=== PATIENT | male | born 1995 | race African-American/Black ===

== ENCOUNTER 2023-11-24 11:53 | Emergency (ER) | payer SELFPAY ==
[2023-11-24 11:54] VITALS: BP 124/84
--- NOTE | 2023-11-24 12:30 | ED.GENMED ---
History of Present Illness
General
Chief Complaint: Headache
Source: patient
Time Seen by Provider: 11/24/23 12:07
History of Present Illness
History of Present Illness:
28yoM with a history of tachycardia and asthma presenting for evaluation of flu-like symptoms x 4-5 days. Symptoms include a headache, body aches, congestion, and cough. Headache is currently mild and feels like a sinus headache. He has not been
taking anything OTC for his symptoms. His nephew vomited in his face before his symptoms started and he believes this may have been what got him sick. He is also having intermittent chest pain for quite some time. He was previously diagnosed with
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
Phy Exam
General Physical Exam
General Presentation: well appearing and no apparent distress
General age: appears stated age
General Skin: warm and dry
General Habitus: normal
General Mental: alert
General Hydration: appears well hydrated
ENT Exam
ENT Exam: TM's normal, pharynx normal and neck supple
Additional ENT: Full ROM of cervical spine without nuchal rigidity
Cardiovascular Exam
Cardiovascular Exam: regular rate/rhythm and no murmur
Pulmonary Exam
Pulmonary Exam: lungs clear, no respiratory distress, no crackles and no wheezing
Tracy Coma Scale
Eye Opening: Spontaneous
Verbal Response: Oriented
Motor Response: Obeys Commands
GCS Total Score: 15
Skin Exam
Skin Exam: normal color and warm/dry
Psychiatric Exam
Psychiatric Exam: normal mood/affect
Course
Orders/Labs/Results
Orders:
Orders
11/24/23 12:29
Electrocardiogram (*1) Urgent
Reason for Study: Chest Pain
Cardiac Monitoring- Treatment ONCE
EKG- Treatment ONCE
0.9% Sodium Chloride 1000 ml [Nss] 1,000 ml IV BOLUS
CR Chest - 2 Views Urgent
Comment:
Reason For Exam: Cough
11/24/23 12:42
COVID-19 Antigen Urgent
Source: Nasal Swab
Complete Blood Count/With Diff Urgent
Comprehensive Metabolic Panel Urgent
Troponin I Urgent
Influenza A+B Rapid Molecular Urgent
HEIDY Source: Nasal Swab
Specimen Description:
Abnormal Lab Results
11/24/23
12:42
RBC 4.49 L 10^6/uL
(4.70-6.10)
MCH 32.3 H pg
(27.0-31.0)
Absolute Monos (auto) 0.7 H 10^3/uL
(0.1-0.6)
Immature Gran % 0.7 H %
(0-0.5)
Monocytes % 11.6 H %
(1.7-9.3)
BUN 23 H mg/dl
(9-20)
Glucose 118 H mg/dl
(70-99)
AST 78 H U/L
(17-59)
ALT 81 H U/L
(0-50)
11/24/23 12:42
11/24/23 12:42
Vital Signs
Initial and Last Documented VS:
Initial Vital Signs
Temp Pulse Resp BP Pulse Ox
98.6 F 100 20 124/84 94
11/24/23 11:54 11/24/23 11:54 11/24/23 11:54 11/24/23 11:54 11/24/23 11:54
Last Documented Vital Signs
Temp Pulse Resp BP Pulse Ox
98.6 F 80 17 124/62 97
11/24/23 11:54 11/24/23 13:45 11/24/23 13:45 11/24/23 13:00 11/24/23 13:45
MDM/Problems Addressed
Differential Diagnosis Includes:
28yoM here with URI symptoms x several days. C/o body aches, headaches, congestion, cough. Also having intermittent chest pain for 'a while.' He is afebrile and hemodynamically stable. He is well appearing in no distress. Exam is reassuring. No
nuchal rigidity noted. Differential diagnosis includes but is not limited to: URI, COVID, influenza, pneumonia, arrhythmia
Initial ED plan: Check cardiac labs, COVID/flu swab, EKG, and CXR. IV fluid bolus. Patient declines analgesics.
*EKG
Interpreted by ED Provider?: Yes
EKG Intrepretation Date: 11/24/23
Heart Rate: 80
Rate: normal
Rhythm: sinus
[place]: normal axis
Interval: normal interval
QRS Pattern: normal QRS
Ischemia: other (Nonspecific T wave changes)
*Critical Care Note
Total Time (30-74mins, 75-104mins- exclusive of procedures): Not Applicable
Update Note
Update Note:
COVID/flu swab negative. Mild transaminitis noted on labs which is nonspecific and may be 2/2 viral illness. He has no abdominal symptoms. Remainder of labs unremarkable. EKG shows NSR without ischemic changes and troponin WNL. CXR is clear. No
indication for hospitalization. Suspect viral URI. Supportive care discussed. Advised f/u with PCP and ED return precautions discussed. He was discharged in stable condition.
ED Attending Note
-
Portions of this chart may have been created with voice recognition software.� Occasional wrong word or��sound alike� substitutions may have occurred due to the inherent limitations of voice recognition software.
Discharge Plan
Departure
Patient Disposition: Home (Routine Discharge)
Date of Disposition: 11/24/23
Time of Disposition: 14:28
Patient with high blood pressure during this ER visit?: No
Discharge Problem:
Viral illness, Transaminitis
Instructions: Upper Respiratory Infection ED
Referrals:
NONE,* [Family Provider] -
Stand Alone Forms: Return to Work
Activity Restrictions/Additional Instructions:
Drink plenty of fluids and rest. Take Tylenol and ibuprofen as needed for body aches/headaches.
Please follow-up with your family doctor. Return to the ER with any new or worsening symptoms.
Interventions
Interventions:
*Risk Screen - Suicide Last Done: 11/24/23 12:46
*General Assessment Last Done: 11/24/23 12:46
*Neglect/Abuse Screening Last Done: 11/24/23 12:46
ED- Fall Risk Assessment Last Done: 11/24/23 15:17
*Nursing Disposition Last Done: 11/24/23 15:17
ED- Neurological Assessment Last Done: 11/24/23 12:46
Discharge Date and Time
Discharge Date/Time: 11/24/23 15:28
Print Language: MAORI
[2023-11-24 12:38] VITALS: BP 134/80
[2023-11-24] MEDS: NSS 1000 IV (12:52)
[2023-11-24 13:00] VITALS: BP 124/62
[2023-11-24 13:04] LABS: % Basophils 0.8 % (0-2); % Eosinophils 2.6 % (0-6); % Immature Granulocytes 0.7 % (0-0.5); % Lymphocytes 28.7 % (20.5-51.1); % Monocytes 11.6 % (1.7-9.3); % Neutrophils 55.6 % (42.2-75.2); Absolute Basophils 0.1 10^3/uL (0-0.2); Absolute Eosinophils 0.2 10^3/uL (0-0.7); Absolute Lymphocytes 1.8 10^3/uL (1.2-3.4); Absolute Monocytes 0.7 10^3/uL (0.1-0.6); Absolute Neutrophils 3.4 10^3/uL (1.4-6.5); Hematocrit 41.5 % (39.0-52.0); Hemoglobin 14.5 g/dL (13.0-18.0); Mean Corp Hgb Conc. 34.9 g/dL (33.0-37.0); Mean Corpuscular Hgb 32.3 pg (27.0-31.0); Mean Corpuscular Volume 92.4 fL (80.0-94.0); Mean Platelet Volume 9.8 fL (7.4-10.4); Nucleated Red Blood Cells % 0 % (-); Platelet Count 264 10^3/uL (130-400); Red Blood Cell Count 4.49 10^6/uL (4.70-6.10); Red Cell Dist. Width 13.9 % (11.5-14.5); White Blood Cell Count 6.1 10^3/uL (4.8-10.8)
[2023-11-24 13:17] LABS: ALT (SGPT) 81 U/L (0-50); AST (SGOT) 78 U/L (17-59); Albumin 4.1 g/dl (3.5-5.0); Alkaline Phosphatase 68 U/L (38-126); Blood Urea Nitrogen 23 mg/dl (9-20); Calcium 9.6 mg/dl (8.4-10.2); Carbon Dioxide 27 mmol/L (22-30); Chloride 102 mmol/L (98-107); Glucose 118 mg/dl (70-99); Potassium 4.5 mmol/L (3.5-5.1); Sodium 139 mmol/L (135-145); Total Bilirubin 0.5 mg/dl (0.2-1.3); Total Protein 6.6 g/dl (6.3-8.2); eGFR > 60.00
[2023-11-24 13:26] LABS: Troponin I < 0.012 ng/ml
[2023-11-24 13:30] LABS: COVID-19 Antigen Negative (Negative)
== END 2023-11-24 15:28 | disposition home or self-care (01) ==
LOC: EMR 11:53
PROVIDERS: Physician Assistant; EMERGENCY PHYSICIAN Emergency Medicine
DX: B34.9 Viral infection, unspecified (principal); R74.01 Elevation of levels of liver transaminase levels
CPT/HCPCS: 99285; 96360; 71046; 80053; 84484; 85025; 87502; 87811; 93005

== ENCOUNTER 2024-04-16 08:28 | Emergency (ER) | payer OTHER, SELFPAY ==
[2024-04-16 08:38] VITALS: BP 126/86
[2024-04-16 08:46] LABS: Glucose - Point of Care 87 mg/dl (70-99)
--- NOTE | 2024-04-16 09:50 | ED.GENMED ---
History of Present Illness
General
Chief Complaint: Weight Changes
Source: patient
Exam Limitations: none
Time Seen by Provider: 04/16/24 09:31
Nursing documentation reviewed up to this point in time: agreed with
History of Present Illness
History of Present Illness:
29-year-old male with history of asthma presents stating for the past 3 to 4 months he has had gradually worsening fatigue, heartburn which is worse at night, intermittent sweating, states he lost 10 pounds in the past 5 days, frequent urination,
thirstiness, poor appetite, left-sided abdominal pain, but has been forcing himself to eat, recently went to urgent care and was told he had reflux with esophagitis and prescribed Protonix which he has not picked up from the pharmacy yet.
Past History
Past History
ED Past Medical History: Asthma and GERD
Social History
Tobacco: Non-smoker
Alcohol: None
Personal: Single
Living: other (With girlfriend)
Employment: Employed
Review of Systems
Review of Systems
Allergies reviewed?: Yes
All Other Systems: ROS reviewed and negative except as documented in HPI and ROS
Constitutional: Reports weight loss and fatigue; Denies fever
Respiratory: Denies trouble breathing
Cardiac: Reports palpitations; Denies chest pain, diaphoresis or syncope
ABD/GI: Denies abdominal pain, nausea, vomiting, diarrhea or anorexia
: Denies dysuria, frequency or difficulty voiding
Musculoskeletal: Reports no symptoms
Skin: Reports no symptoms
Neurological: Reports no symptoms
Phy Exam
Physical Exam
Physical Exam:
GENERAL: No acute distress. A&Ox3.
CONSTITUTIONAL: Afebrile.
EYES: clear, conjunctivae normal
ENMT: moist mucus membranes, Pharynx nl
RESPIRATORY: Regular respirations, nonlabored, lungs clear.
CARDIOVASCULAR: Regular rate and rhythm, no murmurs, no rubs.
GI: Soft, nontender, normal BS
MUSCULOSKELETAL: Moves with ease. Well perfused.
SKIN: Warm, dry, normal
PSYCH: Normal mood and affect. Well kept, interactive and appropriate
NEUROLOGIC: Awake, alert and oriented. No focal neurological deficits
Course
Orders/Labs/Results
Orders:
Orders
04/16/24 10:06
Iohexol [Omnipaque] See Protocol PO NOW STA
04/16/24 10:07
CT Abd/pel W Iv And Oral Contr Urgent
Comment:
Reason For Exam: left side abd pain
0.9% Sodium Chloride 1000 ml [Nss] 1,000 ml IV BOLUS
04/16/24 10:26
Pantoprazole [Protonix IV] 80 mg IV NOW STA
04/16/24 10:37
Complete Blood Count/With Diff Urgent
Comprehensive Metabolic Panel Urgent
Free T4 Urgent
Comment: ADD ON
Lipase Urgent
TSH Urgent
Comment: ADD ON
Total Thyroxine Urgent
Comment: ADD ON
04/16/24 14:42
Add On- LAB Urgent
Tests Added?: T4
04/16/24 14:45
Add On- LAB Urgent
Tests Added?: free T4
Abnormal Lab Results
04/16/24
10:37
RDW 14.7 H %
(11.5-14.5)
Monocytes % 10.0 H %
(1.7-9.3)
Potassium 5.3 H mmol/L
(3.5-5.1)
BUN 28 H mg/dl
(9-20)
AST 166 H U/L
(17-59)
ALT 118 H U/L
(0-50)
Albumin 5.1 H g/dl
(3.5-5.0)
TSH 0.38 L uIU/ml
(0.47-4.68)
01/27/25 10:37
04/16/24 10:37
Vital Signs
Initial and Last Documented VS:
Initial Vital Signs
Temp Pulse Resp BP Pulse Ox
98.3 F 83 16 126/86 98
04/16/24 08:38 04/16/24 08:38 04/16/24 08:38 04/16/24 08:38 04/16/24 08:38
Last Documented Vital Signs
Temp Pulse Resp BP Pulse Ox
98.3 F 53 20 131/83 100
04/16/24 08:38 04/16/24 10:54 04/16/24 10:54 04/16/24 13:00 04/16/24 13:15
MDM/Problems Addressed
Differential Diagnosis Includes:
GERD, esophagitis, hyperglycemia, hyperthyroid
MDM/Problems Addressed:
29-year-old male with history of asthma presents stating for the past 3 to 4 months he has had gradually worsening fatigue, heartburn which is worse at night, intermittent sweating, states he lost 10 pounds in the past 5 days, frequent urination,
thirstiness, poor appetite, left-sided abdominal pain, but has been forcing himself to eat, recently went to urgent care and was told he had reflux with esophagitis and prescribed Protonix which he has not picked up from the pharmacy yet.
Patient totally nontoxic-appearing, afebrile, VSS
Bedside glucose on arrival 87 mg/dL
He does not have a primary doctor at this time
He states he had an upper endoscopy
CBC normal
CMP with no clinically significant abnormality, mild elevation of AST, ALT and BUN otherwise normal may be from dehydration, viral illness
Lipase normal
2:30 PM: CT abdomen pelvis with oral and IV contrast radiology report read:
No acute disease of the abdomen or pelvis
4:00 p.m.
TSH 0.38, Free T4 normal explained to pt nothing urgent needs to be done but he needs to f/u with PCP or Endocrinology (pt states he's been told in the past his thyroid level is abnormal but never on medication).
Pt info sent to our PCP hotline
Referred to GI and Endocrinology
*Critical Care Note
Total Time (30-74mins, 75-104mins- exclusive of procedures): Not Applicable
ED Attending Note
-
Portions of this chart may have been created with voice recognition software.� Occasional wrong word or��sound alike� substitutions may have occurred due to the inherent limitations of voice recognition software.
Discharge Plan
Departure
Patient Disposition: Home (Routine Discharge)
Date of Disposition: 04/16/24
Time of Disposition: 16:01
Patient with high blood pressure during this ER visit?: No
Condition: Good
Discharge Problem:
Subclinical hyperthyroidism
Instructions: Hyperthyroidism (overactive thyroid)
Referrals:
Iqra Caldera MD [Consulting Staff] - Next open appointment
Cedric Harris, DO [Active] - Next open appointment
UNKNOWN - PT DOES,NOT KNOW [Family Provider] -
Activity Restrictions/Additional Instructions:
As we discussed, nothing worrisome in your workup here today.
I gave you the name of a GI doctor to call and make appointment for follow up for your stomach issues.
Get the Protonix from your pharmacy and start it tomorrow as you were given a dose IV here today.
Your thyroid hormone is a little low but the second thyroid hormone is normal so you don't need medication at this time.
I have provided you with the name of an [employer] Director to follow up with, call and make next available appointment.
I sent your information to our Primary Care hotline. Someone will contact you to help you get a primary doctor.
You should have your liver enzymes rechecked in about a month.
Interventions
Interventions:
*Risk Screen - Suicide Last Done: 04/16/24 08:38
*General Assessment Last Done: 04/16/24 08:38
*Neglect/Abuse Screening Last Done: 04/16/24 08:38
ED- Fall Risk Assessment Last Done: 04/16/24 12:40
*ED COVID-19 Vaccine History Last Done: 04/16/24 10:28
Discharge Date and Time
Print Language: BURUNDIAN
[2024-04-16 10:27] VITALS: BMI 23.8
[2024-04-16] MEDS: NSS 1000 IV (10:36)
[2024-04-16] MEDS: OMNIPAQUE 50 ML PO (10:43)
[2024-04-16] MEDS: PROTONIX IV 80 MG IV (10:44)
[2024-04-16 10:46] VITALS: BP 139/89
[2024-04-16 10:54] LABS: % Basophils 0.8 % (0-2); % Eosinophils 2.2 % (0-6); % Immature Granulocytes 0.2 % (0-0.5); % Lymphocytes 32.9 % (20.5-51.1); % Neutrophils 53.9 % (42.2-75.2); Absolute Basophils 0.1 10^3/uL (0-0.2); Absolute Eosinophils 0.1 10^3/uL (0-0.7); Absolute Lymphocytes 2.1 10^3/uL (1.2-3.4); Absolute Monocytes 0.6 10^3/uL (0.1-0.6); Absolute Neutrophils 3.5 10^3/uL (1.4-6.5); Hematocrit 47.5 % (39.0-52.0); Hemoglobin 15.9 g/dL (13.0-18.0); Mean Corp Hgb Conc. 33.5 g/dL (33.0-37.0); Mean Corpuscular Hgb 30.3 pg (27.0-31.0); Mean Corpuscular Volume 90.5 fL (80.0-94.0); Mean Platelet Volume 9.7 fL (7.4-10.4); Nucleated Red Blood Cells % 0 % (-); Platelet Count 312 10^3/uL (130-400); Red Blood Cell Count 5.25 10^6/uL (4.70-6.10); Red Cell Dist. Width 14.7 % (11.5-14.5); White Blood Cell Count 6.4 10^3/uL (4.8-10.8)
[2024-04-16 11:00] VITALS: BP 139/90
[2024-04-16 11:08] LABS: ALT (SGPT) 118 U/L (0-50); AST (SGOT) 166 U/L (17-59); Albumin 5.1 g/dl (3.5-5.0); Alkaline Phosphatase 89 U/L (38-126); Blood Urea Nitrogen 28 mg/dl (9-20); Calcium 9.9 mg/dl (8.4-10.2); Carbon Dioxide 29 mmol/L (22-30); Chloride 102 mmol/L (98-107); Estimated Creatinine Clearance 100 ml/min; Glucose 92 mg/dl (70-99); Lipase 54 U/L (23-300); Potassium 5.3 mmol/L (3.5-5.1); Sodium 139 mmol/L (135-145); Total Bilirubin 0.5 mg/dl (0.2-1.3); Total Protein 7.8 g/dl (6.3-8.2); eGFR > 60.00
[2024-04-16 12:00] VITALS: BP 126/85
[2024-04-16 13:00] VITALS: BP 131/83
[2024-04-16 13:47] LABS: TSH 0.38 uIU/ml (0.47-4.68)
[2024-04-16 15:50] LABS: Free T4 1.17 ng/dl (0.78-2.19); Total Thyroxine 8.41 ug/dl (5.5-11.0)
[2024-04-16 16:28] VITALS: BP 118/70
== END 2024-04-16 16:32 | disposition home or self-care (01) ==
LOC: EMR 08:28
PROVIDERS: Registered Nurse; EMERGENCY PHYSICIAN Student in an Organized Health Care Education/Training Program
DX: E05.90 Thyrotoxicosis, unspecified without thyrotoxic crisis or storm (principal); J45.909 Unspecified asthma, uncomplicated
CPT/HCPCS: 99285; 96374; 96361; 74177; 80053; 82962; 83690; 84436; 84439; 84443; 85025; Q9967

== ENCOUNTER 2024-11-04 19:17 | Emergency (ER) | payer OTHER, SELFPAY ==
[2024-11-04 19:19] VITALS: BP 119/79
--- NOTE | 2024-11-04 23:20 | ED.MUSCINJ ---
HPI-Injury
General
Chief Complaint: Musculo-Skeletal Complaint
Source: patient
Exam Limitations: none
Time Seen by Provider: 11/04/24 21:03
Nursing documentation reviewed up to this point in time: agreed with
History of Present Illness-Injury
Is this injury a work related problem?: No
Is pt an associate of [facility]/[place]?: No
Initial Injury comments:
Patient states he dislocated his right shoulder while playing with dogs earlier this AM. Shoulder reduced on own. Now reports shoulder feels like it is slipping out of position and then back into position. Brought self to eD for eval.
Past History
Past History
ED Past Medical History: Asthma and GERD
Social History
Tobacco: Non-smoker
Alcohol: None
Personal: Single
Living: other (With girlfriend)
Employment: Employed
Review of Systems
Review of Systems
Allergies reviewed?: Yes
All Other Systems: ROS reviewed and negative except as documented in HPI and ROS
Constitutional: Reports no symptoms
Musculoskeletal: Reports joint pain (pain to right shoulder)
Skin: Reports no symptoms
Neurological: Reports no symptoms
Psychiatric: Reports no symptoms
Musculoskeletal Injury Exam
Musculoskeletal Injury Exam
Right Shoulder:
Pain with Movement?: Moderate
Tender to palpation?: Moderate
Soft tissue swelling?: Mild
External deformity and angulation?: None
Joint effusion?: None
Contusion?: None
Hematoma-local bleeding into tissue?: None
Strain- Sprain- Tear (Connective tissue injury)?: Moderate
Crepitus with movement?: No
Joint instability?: No
Malalignment/deformity?: No
Range of motion: Limited
Distal skin color and temperature: normal-warm & good color
Capillary Refill: normal
Normal distal neurovascular exam?: No
Peripheral Pulses: radial (right): 3+
Phy Exam
General Physical Exam
General Presentation: well appearing and no apparent distress
General age: appears stated age
General Skin: warm and dry
General Habitus: normal
General Mental: alert
Musculoskeletal Exam
Musculoskeletal Exam: neuro vasc intact
Skin Exam
Skin Exam: normal color, warm/dry and no rash
Psychiatric Exam
Psychiatric Exam: normal mood/affect
Injury Course
Orders/Labs/Results
Orders:
Orders
11/04/24 19:22
CR Shoulder, Trauma - Right Urgent
Comment:
Reason For Exam: injury, possible dislocation
11/04/24 21:09
Shoulder Immobilizer Right- Tx ONCE
*Radiology
Radiology exam reviewed: radiology read reviewed
*Pulse Oximetry
SaO2: 97
Oxygen Mode of Delivery: Room air
Patient hypoxic: no
*Critical Care Note
Total Time (30-74mins, 75-104mins- exclusive of procedures): Not Applicable
Update Note
Update Note:
No evidence of dislocation on exam or xray. NO fracture noted on xray. WIll dischargehome and he will follow up with ortho. Placed in shoulder immobilizer sling. WIll continue to ice
ED Attending Note
-
Portions of this chart may have been created with voice recognition software.� Occasional wrong word or��sound alike� substitutions may have occurred due to the inherent limitations of voice recognition software.
Discharge Plan
Departure
Patient Disposition: Home (Routine Discharge)
Date of Disposition: 11/04/24
Time of Disposition: 21:09
Patient with high blood pressure during this ER visit?: No
Condition: Good
Covid-19: Not Applicable
Discharge Problem:
Dislocated shoulder
Instructions: Shoulder Dislocation (DC), How to Use a Shoulder Sling ED, Cold therapy for pain, Ibuprofen
Referrals:
Deniz Martinez MD [Active, Orthopedics] - Call in 1-3 days for appt
NONE,* [Active, Internal Medicine]
Stand Alone Forms: Return to Work
Interventions
Interventions:
*Risk Screen - Suicide Last Done: 11/04/24 19:19
*General Assessment Last Done: 11/04/24 19:19
*Neglect/Abuse Screening Last Done: 11/04/24 19:19
*ED- Fall Risk Assessment Last Done: 11/04/24 21:11
*ED COVID-19 Vaccine History Last Done: 11/04/24 21:11
*Nursing Disposition Last Done: 11/04/24 21:14
ED-Musculoskeletal Assessment Last Done: 11/04/24 21:11
Discharge Date and Time
Discharge Date/Time: 11/04/24 21:20
Print Language: HEBREW
== END 2024-11-04 21:20 | disposition home or self-care (01) ==
LOC: EMR 19:17
PROVIDERS: EMERGENCY PHYSICIAN Emergency Medicine
DX: S43.004A Unspecified dislocation of right shoulder joint, initial encounter (principal); X58.XXXA Exposure to other specified factors, initial encounter; J45.909 Unspecified asthma, uncomplicated
CPT/HCPCS: 99283; 73030

== ENCOUNTER 2024-12-17 04:53 | Emergency (ER) | payer OTHER, SELFPAY ==
[2024-12-17 04:55] VITALS: BP 148/100
--- NOTE | 2024-12-17 05:50 | ED.GENMED ---
History of Present Illness
<Jacquelyn Chavez PA-C - Last Filed: 12/17/24 09:35>
General
Chief Complaint: Cold/Flu/URI Symptoms
Source: patient
Exam Limitations: none
Time Seen by Provider: 12/17/24 05:40
Nursing documentation reviewed up to this point in time: agreed with
History of Present Illness
History of Present Illness:
29-year-old male with past medical history of asthma, sinus tachycardia, presents to the ER today with concerns of intermittent shortness of breath and congestion as well as persistent cough. Contrary to triage note, patient is experiencing no
chest pain at this time and has not had chest pain throughout the course of this illness. The patient notes that recently, his girlfriend use an oil diffuser and he feels like this triggered his symptoms. Denies any significant respiratory
distress today but notes some scattered wheezing. He reports feeling warm at home but denies any objective fever. He also reports that his appetite has been decreased. He denies any sick contacts. He also reports that he has been irritable
overall related to his discomfort which is not characteristic for him. He also mentioned shins some dental pain related to wisdom tooth impaction. He reports that coughing seems to be worse in the evening. He denies any abdominal pain, nausea or
vomiting, redness or swelling in his legs. He also notes a sore throat and runny nose as well but denies any trouble swallowing, denies any tongue or lip swelling. Patient reports that he feels generally okay and and reports that his girlfriend
wanted him to be evaluated that he would not of come in otherwise. Patient does note he has a history of sinus tachycardia which has been worked up in the past and his workup has been normal. He denies any sensation of palpitations. There was
concern from nursing staff regarding flare up of his depression. He denies suicidal thoughts, homicidal thoughts, active thoughts of self-harm. He feels safe at home.
Past History
<Jacquelyn Chavez PA-C - Last Filed: 12/17/24 09:35>
Past History
ED Past Medical History: Asthma and GERD
Social History
Tobacco: Non-smoker
Alcohol: None
Personal: Single
Living: other (With girlfriend)
Employment: Employed
Review of Systems
<Jacquelyn Chavez PA-C - Last Filed: 12/17/24 09:35>
Review of Systems
All Other Systems: ROS reviewed and negative except as documented in HPI and ROS
Phy Exam
<Jacquelyn Chavez PA-C - Last Filed: 12/17/24 09:35>
Physical Exam
Physical Exam:
General: Patient is well appearing and in no acute distress; non-toxic
Skin: Warm and dry, no rashes or lesions
Head: Normocephalic, atraumatic
Eyes: Sclera non-icteric. EOMs intact.
Mouth: No intra-oral lesions
Throat: Uvula midline, no tonsillar hypertrophy, uvula midline, mild pharyngitis noted
Cardiac: Mild sinus tachycardia noted otherwise regular rhythm, no murmurs
Peripheral Vascular: No lower ext swelling or edema
Pulm: Normal respiratory effort, scattered wheezing appreciated in lower lung bases
Neuro: CN II-XII intact, no focal neurologic deficits.
Psychiatric: Appropriate mood and affect.
Course
<Jacquelyn Chavez PA-C - Last Filed: 12/17/24 09:35>
Orders/Labs/Results
Orders:
Orders
12/17/24 05:40
0.9% Sodium Chloride 500 ml [Nss] 500 ml IV BOLUS
Ipratropium/Albuterol Sulfate [Duoneb] 3 ml INH R NOW STA
CR Chest - 2 Views Urgent
Comment:
Reason For Exam: persistent coughing, intermittent shortness of nadia
12/17/24 06:15
COVID-19 Antigen Urgent
Source: Nasal Swab
Complete Blood Count/With Diff Urgent
Comprehensive Metabolic Panel Urgent
Influenza A+B Rapid Molecular Urgent
HEIDY Source: Nasal Swab
Specimen Description:
Abnormal Lab Results
12/17/24
06:15
Absolute Monos (auto) 0.9 H 10^3/uL
(0.1-0.6)
Monocytes % 12.0 H %
(1.7-9.3)
Chloride 108 H mmol/L
(98-107)
BUN 24 H mg/dl
(9-20)
12/17/24 06:15
12/17/24 06:15
Vital Signs
Initial and Last Documented VS:
Initial Vital Signs
Temp Pulse Resp BP Pulse Ox
37.1 C 110 20 148/100 96
12/17/24 04:55 12/17/24 04:55 12/17/24 04:55 12/17/24 04:55 12/17/24 04:55
Last Documented Vital Signs
Temp Pulse Resp BP Pulse Ox
37.1 C 85 20 126/78 98
12/17/24 08:50 12/17/24 08:50 12/17/24 04:55 12/17/24 09:00 12/17/24 09:00
Bassamlt;Jeanne Johnson PA-C - Last Filed: 12/17/24 14:54>
Orders/Labs/Results
Orders:
Orders
12/17/24 05:40
0.9% Sodium Chloride 500 ml [Nss] 500 ml IV BOLUS
Ipratropium/Albuterol Sulfate [Duoneb] 3 ml INH R NOW STA
CR Chest - 2 Views Urgent
Comment:
Reason For Exam: persistent coughing, intermittent shortness of nadia
12/17/24 06:15
COVID-19 Antigen Urgent
Source: Nasal Swab
Complete Blood Count/With Diff Urgent
Comprehensive Metabolic Panel Urgent
Influenza A+B Rapid Molecular Urgent
HEIDY Source: Nasal Swab
Specimen Description:
Abnormal Lab Results
12/17/24
06:15
Absolute Monos (auto) 0.9 H 10^3/uL
(0.1-0.6)
Monocytes % 12.0 H %
(1.7-9.3)
Chloride 108 H mmol/L
(98-107)
BUN 24 H mg/dl
(9-20)
12/17/24 06:15
12/17/24 06:15
Vital Signs
Temp: 37.1 C
Pulse: 85
Blood pressure: 133/85
Initial and Last Documented VS:
Initial Vital Signs
Temp Pulse Resp BP Pulse Ox
37.1 C 110 20 148/100 96
12/17/24 04:55 12/17/24 04:55 12/17/24 04:55 12/17/24 04:55 12/17/24 04:55
Last Documented Vital Signs
Temp Pulse Resp BP Pulse Ox
37.1 C 85 20 126/78 98
12/17/24 08:50 12/17/24 08:50 12/17/24 04:55 12/17/24 09:00 12/17/24 09:00
Bassamlt;Jacquelyn Chavez PA-C - Last Filed: 12/17/24 09:35>
MDM/Problems Addressed
Differential Diagnosis Includes:
ddx include pneumonia, acute bronchitis, viral syndrome, asthma exacerbation
MDM/Problems Addressed:
29-year-old male with past medical history of asthma, sinus tachycardia, presents to the ER today with concerns of intermittent shortness of breath and congestion as well as persistent cough. Contrary to triage note, patient is experiencing no
chest pain at this time and has not had chest pain throughout the course of this illness. The patient notes that recently, his girlfriend use an oil diffuser and he feels like this triggered his symptoms. He used OTC cough medicine without relief.
On physical exam, patient is well appearing, in no acute distress, wheezing is heard in lower lung bases. No hypoxia noted. Improvement after duoneb.
Chronic conditions affecting care:
asthma, sinus tachycardia
<Jacquelyn Chavez PA-C - Last Filed: 12/17/24 09:35>
*Pulse Oximetry
SaO2: 96
Oxygen Mode of Delivery: Room air
Patient hypoxic: no
*Critical Care Note
Total Time (30-74mins, 75-104mins- exclusive of procedures): Not Applicable
Data Reviewed
Review of Other/Old Records Reveals: Records (reviewed prior ER physician documentation for similar symptoms )
Source: patient and records
<Jacquelyn Chavez PA-C - Last Filed: 12/17/24 09:35>
Patient Management
Escalation/DeEscalation of care consider admission/obs:
admit not indicated
<Jacquelyn Chavez PA-C - Last Filed: 12/17/24 09:35>
Update Note
Update Note:
Update, patient notes improvement in symptoms after DuoNeb. I appreciate less wheezing in his lower bases. Case signed out to Akosua Johnson PA-C pending CXR.
<Jeanne Johnson PA-C - Last Filed: 12/17/24 14:54>
Update Note
Update Note:
Update, patient notes improvement in symptoms after DuoNeb. I appreciate less wheezing in his lower bases. Case signed out to Akosua Johnson PA-C pending CXR.
12/17/2024 0847 AM
I received this patient in signout. He has URI symptoms for the last 4 days with subjective fever, sore throat, cough, which is flared up his asthma. He received a DuoNeb and he feels better. His wheezing has ultimately nearly resolved, just has
a very faint end expiratory wheeze. He feels better as well after the fluids. Patient's temp is normal, he has mild pharyngitis on exam, no tachypnea or tachycardia after the fluids, and then I did discuss that he had a one-to-one initially
written but that was because of some screening by the triage nurse that seemed that he could have a flareup of his depression. Patient says he is not suicidal, he is safe and he feels comfortable going home. He did not want to come to the hospital
because of his illness but his girlfriend thought he should. He otherwise says he has resources as an outpatient for his depression and does not feel like it is an issue.
ED Attending Note
<Jacquelyn Chavez PA-C - Last Filed: 12/17/24 09:35>
-
Portions of this chart may have been created with voice recognition software.� Occasional wrong word or��sound alike� substitutions may have occurred due to the inherent limitations of voice recognition software.
Discharge Plan
Departure
Patient Disposition: Home (Routine Discharge)
Date of Disposition: 12/17/24
Time of Disposition: 08:49
Patient with high blood pressure during this ER visit?: Yes
Condition: Good
Discharge Problem:
Asthma exacerbation, Acute viral syndrome
Instructions: Asthma in adults, Viral Syndrome (DC), BLOOD PRESSURE
Prescriptions:
New
prednisone 20 mg tablet
40 mg PO DAILY 5 Days Qty: 10 0RF
albuterol sulfate [Ventolin HFA] 90 mcg/actuation HFA aerosol inhaler
2 puff inhalation Q6H PRN (Reason: shortness of breath or wheezing) Qty: 6.7 0RF
Referrals:
NONE,* [Family Provider, Internal Medicine]
Stand Alone Forms: Return to Work
Activity Restrictions/Additional Instructions:
Please continue to monitor your symptoms. You can use your albuterol inhaler at home as needed. For the prednisone, please take 40 mg once daily for 5-day course. Please follow-up with your primary care provider in 1 week for reassessment.
You received IV fluids today. As discussed, your blood work is unremarkable. You tested negative for COVID-19 and influenza. PLEASE RETURN TO ER SHOULD YOU DEVELOP CHEST PAIN, PALPITATIONS, LIGHTHEADEDNESS, DIZZINESS, COUGHING UP OF BLOOD,
REDNESS OR SWELLING IN YOUR LEGS, OR ANY OTHER SIGNS OR SYMPTOMS WORRISOME TO YOU.
Interventions
Interventions:
*Risk Screen - Suicide Last Done: 12/17/24 04:55
*General Assessment Last Done: 12/17/24 05:57
*Neglect/Abuse Screening Last Done: 12/17/24 04:55
*ED- Fall Risk Assessment Last Done: 12/17/24 05:57
*ED COVID-19 Vaccine History Last Done: 12/17/24 05:57
*Nursing Disposition Last Done: 12/17/24 09:13
ED-Psychological Assessment Last Done: 12/17/24 05:57
ED- Pulmonary Assessment Last Done: 12/17/24 05:57
Discharge Date and Time
Discharge Date/Time: 12/17/24 09:13
Print Language: HEBREW
[2024-12-17] MEDS: DUONEB 3 ML INH (06:17)
[2024-12-17] MEDS: NSS 500 IV (06:23)
[2024-12-17 06:30] LABS: Hematocrit 46.3 % (39.0-52.0); Hemoglobin 15.8 g/dL (13.0-18.0); Mean Corp Hgb Conc. 34.1 g/dL (33.0-37.0); Mean Corpuscular Volume 88.2 fL (80.0-94.0); Nucleated Red Blood Cells % 0 % (-); Platelet Count 283 10^3/uL (130-400); Red Cell Dist. Width 14.0 % (11.5-14.5)
[2024-12-17 06:50] LABS: ALT (SGPT) 43 U/L (0-50); AST (SGOT) 48 U/L (17-59); Albumin 4.7 g/dl (3.5-5.0); Alkaline Phosphatase 92 U/L (38-126); Blood Urea Nitrogen 24 mg/dl (9-20); Calcium 9.8 mg/dl (8.4-10.2); Carbon Dioxide 24 mmol/L (22-30); Chloride 108 mmol/L (98-107); Glucose 98 mg/dl (70-99); Potassium 4.8 mmol/L (3.5-5.1); Sodium 139 mmol/L (135-145); Total Protein 8.1 g/dl (6.3-8.2); eGFR > 60.00
[2024-12-17 07:06] LABS: COVID-19 Antigen Negative (Negative)
[2024-12-17 07:39] VITALS: BMI 29.6
[2024-12-17 08:00] VITALS: BP 132/64
[2024-12-17 09:00] VITALS: BP 126/78
== END 2024-12-17 09:13 | disposition home or self-care (01) ==
LOC: EMR 04:53
PROVIDERS: Physician Assistant; EMERGENCY PHYSICIAN Student in an Organized Health Care Education/Training Program
DX: J45.901 Unspecified asthma with (acute) exacerbation (principal); B34.9 Viral infection, unspecified; R03.0 Elevated blood-pressure reading, without diagnosis of hypertension; F32.A Depression, unspecified; K21.9 Gastro-esophageal reflux disease without esophagitis
CPT/HCPCS: 99284; 96360; 94640; 71046; 80053; 85025; 87502; 87811